=== PATIENT | male | born 2000 | race Hispanic/Latino ===

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

== ENCOUNTER 2021-11-11 00:02 | Emergency (ER) | payer OTHER ==
[~2021-11-11] VITALS: Ht 188 cm; Wt 108.9 kg
[2021-11-11 00:03] VITALS: BP 117/75
[2021-11-11] MEDS ORDERED: IBUPROFEN 600 MG TABLET ONE (00:57)
[2021-11-11] MEDS ORDERED: IBUP-2070 PO (01:04)
== END 2021-11-11 01:17 | disposition home or self-care (01) ==
LOC: EDH 00:02
DX: S93.401A Sprain of unspecified ligament of right ankle, initial encounter (principal); Z79.1 Long term (current) use of non-steroidal anti-inflammatories (NSAID); X58.XXXA Exposure to other specified factors, initial encounter; Y93.89 Activity, other specified; Y92.89 Other specified places as the place of occurrence of the external cause; Y99.8 Other external cause status
CPT/HCPCS: 73610

== ENCOUNTER 2024-08-20 10:55 | Emergency (ER) | payer OTHER ==
[~2024-08-20] VITALS: Ht 188 cm; Wt 122.0 kg
[~2024-08-20 10:55] MED LIST: IBUP-2070 PO
[2024-08-20 11:04] VITALS: BP 132/56; PULSE 78; RESP 20; TEMP 98.8; O2SAT 98
[2024-08-20] MEDS ORDERED: IBUP-2077 PO (11:09)
[2024-08-20] MEDS ORDERED: CYCL10TA16 PO (11:10)
[2024-08-20] MEDS ORDERED: METH4TAB3 PO (11:10)
[2024-08-20] MEDS: ketOROlac 60 MG VIAL (30MG/ML) IM ONE (11:10)
[2024-08-20] MEDS: CYCLOBENZAPRINE HCL 10 MG TABLET PO ONE (11:10)
== END 2024-08-20 11:17 | disposition home or self-care (01) ==
LOC: EDH 10:55
DX: S39.012A Strain of muscle, fascia and tendon of lower back, initial encounter (principal); Z79.899 Other long term (current) drug therapy; X58.XXXA Exposure to other specified factors, initial encounter; Y93.01 Activity, walking, marching and hiking; Y92.89 Other specified places as the place of occurrence of the external cause; Y99.8 Other external cause status
CPT/HCPCS: 99283; 96372; J1885

== ENCOUNTER 2025-04-09 17:32 | Emergency (ER) | payer OTHER ==
[~2025-04-09] VITALS: Ht 188 cm; Wt 124.7 kg
[~2025-04-09 17:32] MED LIST changes: +CYCL10TA16 PO; +IBUP-2077 PO; +METH4TAB3 PO
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
--- NOTE | 2025-04-09 18:51 | HMCIMG ---
CT CERVICAL SPINE WITHOUT CONTRAST INDICATION: Neck pain TECHNIQUE: Contiguous axial computed tomography imaging using 2 mm slice thickness through the cervical spine. Reconstructions in the sagittal and coronal planes. CT was performed with one or more of the following dose reduction techniques: Automated exposure control, adjustment of the mA and/or kV according to patient size, or use of iterative reconstruction technique. COMPARISON: None. FINDINGS: Normal lordosis is maintained. Vertebral bodies are normal stature without evidence for compression deformity or fracture. No evidence for subluxation. The intervertebral disc heights are well-preserved. The craniocervical junction appears normal. The atlantoaxial articulation is within normal limits. The dens is intact. The pre- and paravertebral soft tissues appear unremarkable. IMPRESSION: No evidence for fracture or subluxation.
--- NOTE | 2025-04-09 18:51 | HMCIMG ---
CT HEAD WITHOUT CONTRAST INDICATION: Head injury TECHNIQUE: Noncontrast axial helical CT images from the vertex through the skull base using 5 mm slice thickness without contrast material. CT was performed with one or more of the following dose reduction techniques: Automated exposure control, adjustment of the mA and/or kV according to patient size, or use of iterative reconstruction technique. COMPARISON: None FINDINGS: The cerebral and cerebellar hemispheres are age-appropriate in appearance. No evidence for abnormal extra-axial fluid collections or masses. The ventricles and sulci are normal in size and configuration. No evidence for intracranial parenchymal, epidural, or subdural hemorrhage, mass effect or midline shift. The umanzor-white matter differentiation is well preserved. No secondary evidence to suggest acute ischemia. The brainstem and cerebellum appear normal. The visualized orbits appear unremarkable. The visible paranasal sinuses and mastoid air cells are clear. The calvarium appears normal. IMPRESSION: No acute intracranial process identified.
[2025-04-09 18:56] VITALS: BP 121/76; PULSE 60; RESP 16; TEMP 97.9; O2SAT 97
== END 2025-04-09 19:08 | disposition home or self-care (01) ==
LOC: EDH 17:32
DX: S09.90XA Unspecified injury of head, initial encounter (principal); V98.8XXA Other specified transport accidents, initial encounter; Y93.89 Activity, other specified; Y92.89 Other specified places as the place of occurrence of the external cause; Y99.8 Other external cause status
CPT/HCPCS: 70450; 72125; 99284